=== PATIENT | female | born 1990 | race American Indian/Alaskan Native ===

== ENCOUNTER 2019-04-14 16:25 | Emergency (ER) | payer MEDICAID ==
[2019-04-14 16:37] VITALS: BP 130/66
--- NOTE | 2019-04-14 18:54 | Emergency Department Report ---
HPI - General Chief Complaint: Medical Clearance Time Seen by Provider: 04/14/19 18:43 - HPI HPI: Room 37 The patient is a 29-year-old female presenting with a chief complaint of right upper extremity pain and paresthesia. The patient states she's had tingling and pain in her right upper extremity for approximately one month. The patient states over the past one to days stenosis of dropping things in the right hand secondary to the pain and numbness. Patient denies any preceding trauma. Patient complains of pain and numbness mostly in her right middle, index finger and thumb. Patient denies paresthesias elsewhere. Patient denies history of dysarthria. ED Past Medical Hx - Past Medical History Previous Medical History?: No - Surgical History Past Surgical History?: No - Family History Family history: no significant - Social History Smoking Status: Never Smoker Substance Use Type: None (denies illicit drug use), Alcohol (occasional) - Medications Home Medications: Home Medications Medication Instructions Recorded Confirmed Last Taken Type Ibuprofen [Motrin 800 MG tab] 800 mg PO Q8HR PRN #20 tablet 04/14/19 Unknown Rx traMADol [Ultram] 50 mg PO Q6HR PRN #14 tablet 04/14/19 Unknown Rx ED Review of Systems ROS: Stated complaint: RT HAND TINGLE/URINE FREQUENT Other details as noted in HPI Constitutional: no symptoms reported Eyes: denies: eye pain ENT: denies: throat pain Respiratory: no symptoms reported Cardiovascular: denies: chest pain Endocrine: no symptoms reported Gastrointestinal: denies: abdominal pain Genitourinary: denies: dysuria Musculoskeletal: myalgia Neurological: paresthesias. denies: headache Physical Exam - Physical Exam Vital Signs: Vital Signs 04/14/19 16:33 Temperature 98.7 F Pulse Rate 83 Respiratory 16 Rate Blood Pressure 130/66 [Right] O2 Sat by Pulse 99 Oximetry Physical Exam: GENERAL: The patient is well-developed well-nourished female lying on stretcher not appearing to be in acute distress. [] HEENT: Normocephalic. Atraumatic. Extraocular motions are intact. Patient has moist mucous membranes. NECK: Supple. Trachea midline CHEST/LUNGS: There is no respiratory distress noted. HEART/CARDIOVASCULAR: Regular. There is no tachycardia. 2+ right DP. Normal capillary refill of all the digits of the right hand. SKIN: There is no rash. There is no edema. There is no diaphoresis. NEURO: The patient is awake, alert, and oriented. The patient is cooperative. The patient has no focal neurologic deficits. The patient has normal speech. Cranial nerves II through XII grossly intact, no drift MUSCULOSKELETAL: Positive Phalen's test ED Course Vital Signs 04/14/19 16:33 Temperature 98.7 F Pulse Rate 83 Respiratory 16 Rate Blood Pressure 130/66 [Right] O2 Sat by Pulse 99 Oximetry ED Medical Decision Making - Differential Diagnosis carpal tunnel syndrome, neuropathy, Critical care attestation.: If time is entered above; I have spent that time in minutes in the direct care of this critically ill patient, excluding procedure time. ED Disposition Clinical Impression: Carpal tunnel syndrome Disposition: - TO HOME OR SELFCARE Is pt being admited?: No Does the pt Need Aspirin: No Condition: Stable Instructions: Carpal Tunnel Syndrome (ED) Prescriptions: Ibuprofen [Motrin 800 MG tab] 800 mg PO Q8HR PRN #20 tablet PRN Reason: Pain, Moderate (4-6) traMADol [Ultram] 50 mg PO Q6HR PRN #14 tablet PRN Reason: Pain Referrals: GINI ISBELL MD [Staff Physician] - 3-5 Days (Dr. Isbell is an orthopedic surgeon. Please follow up with him for further evaluation) Time of Disposition: 18:55
== END 2019-04-14 19:35 | disposition home or self-care (01) ==
LOC: ED 16:25
DX: G56.01 Carpal tunnel syndrome, right upper limb (principal)
CPT/HCPCS: 99281